=== PATIENT | female | born 1940 | race Caucasian/White ===

== ENCOUNTER → 2017-07-16 | Day surgery (SDC) | payer OTHER ==
[~2017-07-16] VITALS: Ht 154.9 cm; Wt 61.2 kg
[~2017-07-16] MED LIST: IBU-8800 MG PO; LISINOPRIL10 MG PO; METFORMIN500 MG PO; PERCOCET 325 MG1 TA2 PO; SIMVASTATIN40 MG PO
--- NOTE | ~2017-07-16 | O ---
[place], [place] OPERATIVE NOTE NAME: [facility]I [facility]ILLO [facility]: [id number] UNIT #: [id number] ROOM: DOCTOR: MALOU RODRIGUEZ,EREN BIRTHDATE: [birth year] DOS: 07/16/2017 GASTROENDOSCOPIC REPORT INDICATIONS: The patient has presented with chief complaint of history of colonic polyp, undergoing investigation. PROCEDURE: Today's procedure part of investigation is colonoscopy plus polypectomy. PREMEDICATION: Versed and Diprivan. SCOPE: Olympus folding colonoscope 10L video. REPORT: After putting the patient in left lateral position and application of lubricant to the scope, the scope was introduced. Thereafter, under direct visualization, advanced through the length of colon without difficulty. Diverticulosis was appreciated. Sessile polypoid lesion in rectal pouch with piecemeal polypectomy removed. Base of the cecum explored, appendiceal orifice identified, ileocecal valve was defined. Scope was gradually withdrawn from ascending, transverse, descending colon. The patient extubated, tolerated the procedure well. IMPRESSION: Diverticulosis, sessile colonic polyp, rectosigmoid area, status post piecemeal polypectomy. PLAN: High fiber fruit diet. ACTIVITY: Ad bigg. FOLLOWUP: Routinely with you in office, p.r.n. visit with us in GI Clinic. EREN WESTFALL MD CM:OPRECORD:OPERATIVE NOTE 1048 [id number] EREN WESTFALL MD 07/16/17 1105 interface
--- NOTE | ~2017-07-16 | O ---
[place], [place] OPERATIVE NOTE NAME: [facility]O [id number] UNIT #: [id number] ROOM: DOCTOR: EREN WESTFALL MD BIRTHDATE: [birth year] DOS: 07/16/2017 GASTROENDOSCOPIC REPORT INDICATIONS: A 77-year-old patient who presented with chief complaint of dyspepsia, history of colonic polyp, undergone investigation. ALLERGIES: No known to medication. PAST MEDICAL HISTORY: Diabetes, hypertension, hyperlipidemia. PAST SURGICAL HISTORY: Tubal and cholecystectomy. SOCIAL HISTORY: Nonsmoker, nonalcohol consumer. PROCEDURE: Today's procedure is part of investigation is panendoscopy and colonoscopy. PREMEDICATION: Versed and Diprivan. SCOPE: Olympus folding gastroscope Q10. REPORT: After putting the patient in left lateral position and application of lubricant to the scope, the scope was introduced. Thereafter, under direct visualization, advanced through the length of esophagus without difficulty. Esophagus cervicothoracic distally carefully examined. Gastric pouch was entered. Gastritis was seen. Antral biopsy was obtained. Duodenal bulb, second and third part within normal limits. PLAN AND DISCUSSION: We are going to start this patient on PPI therapy, i.e., omeprazole 20 mg 1 daily and I am going to proceed with colonoscopy. EREN WESTFALL MD CM:OPRECORD:OPERATIVE NOTE [phone] EREN WESTFALL MD 07/16/17 1059 interface
[2017-07-16 09:43] VITALS: BP 208/88
[2017-07-16 10:36] VITALS: BP 159/66
[2017-07-16 10:51] VITALS: BP 175/77
[2017-07-16 11:05] VITALS: BP 168/70
== END | disposition home or self-care (01) ==
LOC: SDC 07-10 11:00
DX: Z09 Encounter for follow-up examination after completed treatment for conditions other than malignant neoplasm (principal); Z86.010 Personal history of colon polyps; K57.30 Diverticulosis of large intestine without perforation or abscess without bleeding; K29.50 Unspecified chronic gastritis without bleeding; K62.1 Rectal polyp; E11.9 Type 2 diabetes mellitus without complications; I10 Essential (primary) hypertension; E78.5 Hyperlipidemia, unspecified; Z98.51 Tubal ligation status; Z90.49 Acquired absence of other specified parts of digestive tract; Z98.890 Other specified postprocedural states; Z82.49 Family history of ischemic heart disease and other diseases of the circulatory system; Z80.9 Family history of malignant neoplasm, unspecified

== ENCOUNTER 2018-12-08 15:33 | Inpatient (IN) | payer OTHER ==
[~2018-12-08] VITALS: Ht 154.9 cm; Wt 59.0 kg
--- NOTE | ~2018-12-08 | O ---
[place], [place] OPERATIVE NOTE NAME: [id number] UN[facility] #: [id number] ROOM: 408 DOCTOR: EREN WESTFALL MD BIRTHDATE: [birth year] DOS: 12/11/2018 GASTROENDOSCOPIC REPORT INDICATIONS: A 78-year-old patient who has presented with chief complaint of abnormal liver function test, abnormal CT scan, dilated common duct, suspected distal common duct obstruction. PROCEDURE: Today's procedure part of investigation is ERCP plus therapeutics. SCOPE: Olympus side-viewing duodenoscope. REPORT: After putting the patient in left lateral position and application of lubricant to the scope, the scope was introduced. Thereafter, under direct visualization, advanced through the length of esophagus into gastric pouch into duodenal bulb. Selective cannulization of common duct was done. Common duct stones was noticed. A guidewire was introduced into the right hepatic radicle and papillotomy was performed at 1 o'clock after opacification of duct and documentations and balloon size 12 was introduced into the common duct. Multiple sweeps done, multiple stones were extracted. Then, a stent size 10 x 5 was advanced over the guidewire and placed in the common duct and photographic and radiologic x-ray documentation was done. The patient extubated, tolerated the procedure well. IMPRESSION: ERCP, papillotomy, status post balloon dilation of papilla, status post balloon sweep of common duct and multiple stones removal, status post common duct stent size 10 x 5 and supportive. PLAN AND DISCUSSION: Multi-choledocholithiasis extraction as identified above. Plan, we are going to get a liver function test tomorrow. EREN WESTFALL MD CM:OPRECORD:OPERATIVE NOTE 18 225 EREN WESTFALL MD 12/11/18 2250 interface
--- NOTE | ~2018-12-08 | CON ---
[place], [place] REPORT OF CONSULTATION NAME: [facility]I CASTILLO [facility] [id number] UNIT #: [id number] ROOM: 408 DOCTOR: MALOU RODRIGUEZDEIONJOE BIRTHDATE: [birth year] DOS: 12/11/2018 GASTROENDOSCOPIC REPORT HISTORY OF PRESENT ILLNESS: This is a 78-year-old patient, who has presented with chief complaint of abdominal pain after intensive investigation, finally was suspected to have dilated intra and extrahepatic duct and suspected with possible choledocholithiasis at distal common duct and I have been asked for assessment of the patient with a biliary dilation of 17 mm. She is very large status post cholecystectomy history. Her labs and records have been reviewed. Her SGOT and SGPT are elevated at 69 and 125. Alkaline phosphatase is 321 with bilirubin of 0.3. There is MRCP done, severe biliary dilation, no pancreatitis, and distal common bile duct stone. Blood cultures are negative. Myocardial perfusion studies, ejection fraction of more than 70%. LFTs repeatedly abnormal. Blood cultures are negative. Viral hepatitis studies negative. Initial admission blood work, white blood cell was 13.5 with H and H of 14 and 46. INR was 1.0. Comprehensive metabolic panel at that stage remained abnormal repeatedly. Bilirubin was as high as 3.6. PAST MEDICAL HISTORY: Associated with hyperlipidemia, hiatal hernia, hypertension, and diabetes mellitus. PAST SURGICAL HISTORY: Cholecystectomy, polypectomy, and bladder surgery. HOME MEDICATIONS: Home medications has been reviewed. ALLERGIES: No known medications. SOCIAL HISTORY: She is a nonsmoker, nonalcohol consumer. FAMILY HISTORY: Noncontributory. REVIEW OF SYSTEMS: HEENT: In general, denies double vision, blurred vision. RESPIRATORY: Denies acute shortness of breath. CARDIOVASCULAR: Denies acute chest pain. DIGESTIVE SYSTEM: Abdominal pain, right upper quadrant pain, nausea. PHYSICAL EXAMINATION: VITAL SIGNS: Stable. HEENT: Within normal limits. NECK: Supple, no thyromegaly, no cervical lymphadenopathy. CHEST: Symmetric anatomy, equal expansion. No wheeze, no rhonchi. HEART: Normal sinus rhythm, no gallop, no murmur. ABDOMEN: Soft. No hepato-organomegaly. Bowel sounds present. No pulsatile mass. She has right upper quadrant pain. EXTREMITIES: No cyanosis. No pedal edema. NEUROLOGIC: She is alert and oriented to time and place. IMPRESSION: Dilated common bile duct, abnormal liver function test, and distal [place], [place] REPORT OF CONSULTATION NAME: MEENAKSHI CASTILLO UNIT #: [id number] ROOM: [facility] DOCTOR: EREN WESTFALL MD BIRTHDATE: [birth year] common bile duct stone. OTHER ADJUNCTIVE DIAGNOSES: As outlined above. PLAN AND DISCUSSION: ERCP and therapeutics. EREN WESTFALL MD CM:CONSTR:REPORT OF CONSULTATION 1929 12/12/18 0615 interface
--- NOTE | ~2018-12-08 | EKG ---
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
--- NOTE | ~2018-12-08 | ST ---
[place], [place] EXERCISE STRESS TEST REPORT NAME[id number] UNIT #: [id number] ROOM: 408 DOCTOR: JORI LITTLE BIRTHDATE: [birth year] DOS: 12/10/2018 INDICATION: Chest pain. PROTOCOL: Exercise SPECT myocardial perfusion imaging, Jayesh protocol. Baseline EKG showed normal sinus rhythm with normal axis and normal intervals, no resting ST or T-wave abnormalities. Baseline blood pressure 122/64 with a resting pulse of 73. The patient exercised for a total of 7 minutes and 38 seconds achieving a peak heart rate of 121, which is 84% of age-predicted maximum. Peak blood pressure not obtained. His blood pressures were not able to be recorded during exercise. The patient felt too unsteady to move her arm. Radiotracer was injected at peak exercises and the emergency stop button was inadvertently pressed by stress lab staff causing early termination of the protocol immediately after tracer injection. Stress EKG showed no evidence of ischemia and no arrhythmias were noted. The patient reported no chest pain. The patient was manually held in stage 2 of the Jayesh protocol and she felt she would be unable to augment the speed and the incline. IMPRESSION: 1. No evidence of ischemia on stress EKG. 2. Total workload achieved 7.1 METs, average for age. 3. Nuclear images to be reported separately. Dr. JORI LITTLE MD CM:STRESS:EXERCISE STRESS TEST REPORT [id number] JORI LITTLE
--- NOTE | ~2018-12-08 | EKG ---
[place], [place] ELECTROCARDIOGRAM REPORT NAME: MEENAKSHI CASTILLO UNIT #: [id number] ROOM: 408 DOCTOR: RED DRAFT REPORT BIRTHDATE: [birth year] [facility] Test Date: 2018-12-09 Test Time: 00:16:26 Pat Name: MEENAKSHI CASTILLO Department: Room: 408 2 Gender: F Electronics Maintenance Technician: SS RESP : 1940 Requested By: MIGUEL MELGAR Order Number: [id number] Reading MD: Philip Martinez MD Measurements Intervals [place] Rate: 76 P: 27 RI: 151 QRS: 8 QRSD: 86 T: 27 QT: 380 QTc: 428 Interpretive Statements Sinus rhythm Abnormal R-wave progression, early transition Electronically Signed On 12-09-2018 8:25:28 PDT by Philip Martinez MD CM:EKGRPT:ELECTROCARDIOGRAM REPORT 0016 0825 MIGUEL BRUNER DRAFT REPORT MIGUEL MELGAR DO
--- NOTE | ~2018-12-08 | EKG ---
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
[2018-12-08 15:33] VITALS: BP 135/49
[~2018-12-08 15:33] MED LIST changes: -LISINOPRIL10 MG PO; +LISINOPRIL20 MG PO
[2018-12-08 16:04] LABS: BASO # 0.1 10*3/uL (0.0-0.1); BASO % 0.4 % (0.0-1.0); EOS # 0.2 10*3/uL (0.0-0.4); EOS % 1.8 % (1.0-4.0); HEMATOCRIT 46.7 % (37.0-47.0); HEMOGLOBIN 14.9 g/dl (12.0-16.0); LYMPH # 0.9 10*3/uL (1.3-4.4); MEAN CORPUSCULAR HGB 29.7 pg (27.0-31.0); MEAN CORPUSCULAR HGB CONC 31.9 g/dl (33.0-37.0); MEAN PLATELET VOLUME 10.7 fl (9.6-12.3); MONO # 0.1 10*3/uL (0.1-1.0); MONO % 0.8 % (3.0-9.0); NEUT # 12.1 10*3/uL (2.3-7.9); NEUT % 89.6 % (47.0-73.0); PLATELET COUNT AUTOMATED 209 10*3/uL (130-400); RED BLOOD COUNT 5.02 10*6/uL (4.10-5.10); RED CELL DISTRI WIDTH 12.5 % (0-14.5); WHITE BLOOD COUNT 13.5 10*3/uL (4.8-10.8)
[2018-12-08 16:15] LABS: ACT PARTIAL THROMBO TIME 22.9 SECONDS (20.0-32.1)
[2018-12-08 16:20] LABS: ALBUMIN 3.4 gm/dl (3.1-4.5); ALKALINE PHOSPHATASE 387 U/L (45-117); BUN 8 mg/dl (7-24); CHLORIDE 103 mmol/L (98-107); CREATININE 0.96 mg/dL (0.55-1.02); LIPASE 122 U/L (73-393); POTASSIUM 3.6 mmol/L (3.5-5.1); SGOT/AST 381 IU/L (3-35); SGPT/ALT 231 U/L (12-78); SODIUM 140 mmol/L (136-145)
[2018-12-08 16:24] LABS: TROPONIN I < 0.015 ng/ml (<0.045)
[2018-12-08 18:03] LABS: BILIRUBIN NEGATIVE (NEGATIVE); BLOOD TRACE-INTACT (NEGATIVE); CLARITY CLEAR (CLEAR); COLOR YELLOW (YELLOW); GLUCOSE TRACE (NEGATIVE); KETONE NEGATIVE (NEGATIVE); LEUKO ESTERASE NEGATIVE (NEGATIVE); NITRITE NEGATIVE (NEGATIVE); SPECIFIC GRAVITY <= 1.005 (1.005-1.030)
[2018-12-08 18:18] LABS: EPITHELIAL CELLS 0-2; RBC 0-2 rbc/hpf (0-2)
[2018-12-08 18:25] VITALS: BP 130/58
[2018-12-08 21:35] VITALS: BP 135/60
--- NOTE | 2018-12-08 21:35 | NUR ---
A 78, admitted to , under the services of MICHAEL Novak DO with a diagnosis of ATYPICAL CHEST PAIN,, ELEVATED LIVER ENZYMES. Chief complaint is CHEST,BACK, AND ABDOMINAL PAIN. Patient arrived via stretcher from ER. Monitor applied. Initial assessment completed. Vital signs taken and recorded. MICHAEL NOVAK DO notified of admission to the unit. Orders received. See assessment for past medical history, medications and allergies. Patient and/or family oriented to unit. [facility] 4TH FLOOR visitation policy reviewed. Clothing/patient valuable form completed. SHAYNE JORDAN
[2018-12-08] MEDS ORDERED: JANUVIA100 MG PO (21:45)
[2018-12-08] MEDS ORDERED: LEVEMIR FL100 UNIT/1 SC (21:45)
--- NOTE | 2018-12-08 22:20 | NUR ---
DR. MELGAR NOTIFIED PATIENT MED REC IS UP TO DATE
--- NOTE | 2018-12-08 23:37 | NUR ---
Pt started on IS. Encouraged pt to self-use 10 breaths an hour. 1000cc
[2018-12-09] VITALS: BP 154/69
--- NOTE | 2018-12-09 | NUR ---
PATIENT TAKEN DOWN FOR CT.
[2018-12-09 03:24] LABS: BASO # 0.1 10*3/uL (0.0-0.1); BASO % 0.4 % (0.0-1.0); EOS # 0.2 10*3/uL (0.0-0.4); EOS % 1.4 % (1.0-4.0); HEMATOCRIT 41.8 % (37.0-47.0); HEMOGLOBIN 13.3 g/dl (12.0-16.0); LYMPH # 2.1 10*3/uL (1.3-4.4); LYMPH % 14.4 % (27.0-41.0); MEAN CELL VOLUME 92.3 fl (81.0-99.0); MEAN CORPUSCULAR HGB 29.4 pg (27.0-31.0); MEAN CORPUSCULAR HGB CONC 31.8 g/dl (33.0-37.0); MEAN PLATELET VOLUME 10.9 fl (9.6-12.3); MONO # 0.6 10*3/uL (0.1-1.0); MONO % 3.8 % (3.0-9.0); NEUT # 11.8 10*3/uL (2.3-7.9); NEUT % 79.7 % (47.0-73.0); PLATELET COUNT AUTOMATED 183 10*3/uL (130-400); RED BLOOD COUNT 4.53 10*6/uL (4.10-5.10); RED CELL DISTRI WIDTH 12.6 % (0-14.5); WHITE BLOOD COUNT 14.8 10*3/uL (4.8-10.8)
[2018-12-09 03:54] LABS: ALBUMIN 2.8 gm/dl (3.1-4.5); ALKALINE PHOSPHATASE 315 U/L (45-117); BILIRUBIN, DIRECT 0.7 mg/dL (0.0-0.2); BUN 6 mg/dl (7-24); CHLORIDE 108 mmol/L (98-107); CHOLESTEROL 101 mg/dL (<200); GAMMA GLUTAMYL TRANSPEPTIDASE 430 U/L (5-55); HDL CHOLESTEROL 40 mg/dl (40-60); LDL CHOLESTEROL 41 mg/dL (9-159); PHOSPHOROUS 2.7 mg/dL (2.5-4.9); POTASSIUM 3.6 mmol/L (3.5-5.1); SGOT/AST 213 IU/L (3-35); SGPT/ALT 202 U/L (12-78); SODIUM 142 mmol/L (136-145); TOTAL PROTEIN 6.6 gm/dL (6.4-8.2); TRIGLYCERIDES 100 mg/dl (<150); VLDL CHOLESTEROL 20 mg/dL (6-40)
--- NOTE | 2018-12-09 07:10 | NUR ---
ARRIVED ON SHIFT, INTRODUCED TO PATIENT, BEDSIDE REPORT RECEIVED, NO NEEDS VOICED AT THIS TIME. WHITE BOARD UPDATED.
[2018-12-09 08:00] VITALS: BP 168/80
--- NOTE | 2018-12-09 08:23 | NUR ---
Shift chart check completed.
--- NOTE | 2018-12-09 09:00 | NUR ---
Patient Scheduling Coordinator in to talk to patient. Patient states lives at home with . There are few steps in the home. Physician: arnulfo hussein Pharmacy: Home health services: none Patient's level of ADLs: INDEPENDENT Patient has working utilities: all working DME: none Follow-up physician's appointment after d/c: will be made by hospsitalist nurse director upon discharge Does patient want to access PORTAL?: no Discharge plan discussed with patient, she lives at home with , she is independent in adls and ambulation, she states she will be returning home when able. discussed with patient VNA, she declined any home needs at this time. MACY PEGUERO
[2018-12-09 09:09] LABS: VITAMIN D, 25-HYDROXY 13.4 ng/mL (30-100)
--- NOTE | 2018-12-09 09:40 | NUR ---
CALL PLACED TO HOSPITALIST, SPOKE TO DR. CASTILLO, ADVISED THAT HOME MEDS WHERE RECONCILED YESTERDAY.
[2018-12-09 12:00] VITALS: BP 139/52
--- NOTE | 2018-12-09 12:35 | NUR ---
PATIENT C/O CHEST AND LEFT SHOULDER PAIN DESCRIBES A HURTING PAIN 5/10, WILL REASSESS IN1 HOUR.
--- NOTE | 2018-12-09 13:30 | NUR ---
PATIENT REPORTS HER PAIN IS ONLY MILDLY BETTER, SHE DECLINES [id number] ELSE FOR PAIN.
--- NOTE | 2018-12-09 15:40 | NUR ---
RESTING IN BED. COMPLAINS OF PAIN IN BACK BETWEEN SHOULDER BLADES.
[2018-12-09 16:00] VITALS: BP 150/46
--- NOTE | 2018-12-09 18:20 | NUR ---
COMPLAINS OF PAIN IN SHOULDER BLADES. VOICES EARLIER MORPHINE WAS NOT EFFECTIVE FOR PAIN. DR. KAMARA NOTIFIED
--- NOTE | 2018-12-09 18:43 | NUR ---
MEDICATED WITH NORCO FOR COMPLAINST OF PAIN IN MIDSTERNAL CHEST RADIATING TO BACK.
[2018-12-09 20:00] VITALS: BP 155/60
--- NOTE | 2018-12-09 21:30 | NUR ---
MEDICATED WITH RETORIL PER PRN ORDER FOR C/O INSOMNIA.
--- NOTE | 2018-12-09 21:58 | NUR ---
DR KING NOTIFIED OF + BLOOD CULTURES.
[2018-12-10] VITALS: BP 137/59
[2018-12-10 07:11] LABS: HEPATITIS B SURFACE AG Negative (Negative); HEPATITIS C VIRUS ANTIBODY <0.1 s/co (0.0-0.9)
[2018-12-10 07:53] LABS: BASO # 0.1 10*3/uL (0.0-0.1); BASO % 0.5 % (0.0-1.0); EOS # 0.4 10*3/uL (0.0-0.4); HEMATOCRIT 38.7 % (37.0-47.0); HEMOGLOBIN 12.6 g/dl (12.0-16.0); LYMPH # 2.3 10*3/uL (1.3-4.4); LYMPH % 20.5 % (27.0-41.0); MEAN CELL VOLUME 90.2 fl (81.0-99.0); MEAN CORPUSCULAR HGB 29.4 pg (27.0-31.0); MEAN CORPUSCULAR HGB CONC 32.6 g/dl (33.0-37.0); MEAN PLATELET VOLUME 10.8 fl (9.6-12.3); MONO # 0.6 10*3/uL (0.1-1.0); MONO % 5.3 % (3.0-9.0); NEUT # 7.7 10*3/uL (2.3-7.9); NEUT % 69.4 % (47.0-73.0); PLATELET COUNT AUTOMATED 194 10*3/uL (130-400); RED BLOOD COUNT 4.29 10*6/uL (4.10-5.10); RED CELL DISTRI WIDTH 12.5 % (0-14.5)
[2018-12-10 08:08] LABS: ALBUMIN 2.8 gm/dl (3.1-4.5); ALKALINE PHOSPHATASE 326 U/L (45-117); BUN 5 mg/dl (7-24); CHLORIDE 105 mmol/L (98-107); CREATININE 0.75 mg/dL (0.55-1.02); POTASSIUM 3.2 mmol/L (3.5-5.1); SGOT/AST 96 IU/L (3-35); SGPT/ALT 141 U/L (12-78); SODIUM 140 mmol/L (136-145); TOTAL PROTEIN 6.6 gm/dL (6.4-8.2)
--- NOTE | 2018-12-10 08:21 | NUR ---
Taken off floor to cardiac rehab for stress testing.
--- NOTE | 2018-12-10 09:00 | NUR ---
case management visits with patient, she states she will return home when medically stable and denies any home needs
--- NOTE | 2018-12-10 10:40 | NUR ---
INFORMED CONSENT SIGNED FOR CARDIOLYTE STRESS TEST WITH DR. LITTLE. RESTING EKG NSR, HR 73, BP 122/64. COMPLETED 7:38 OF A MODIFIED TIN PROTOCOL STRESS TESTNG WITH STAGE II, 2.5PMH/12% GRADE BEING HELD. PEAK HEART RATE OF 121 ACHIEVED WHICH IS 84% PREDICTED MAXIMUM AND A PEAK BP OF 120/64. NO ARRHYTHMIAS NOTED. NON DIAGNOSTIC ST CHANGES PRESENT. TEST TERMINATED D/T FATIGUE. HAS A GOOD EXERCISE TOLERANCE. LAST RECOVERY HR 89, BP 120/64. WAITING NUCLEAR SCANNING IN STABLE CONDITION.
--- NOTE | 2018-12-10 10:49 | NUR ---
NOTIFIED OF CONSULT. ATILIO CALLED BACK WITH MRCP RESULTS.
[2018-12-10 12:00] VITALS: BP 105/62
--- NOTE | 2018-12-10 12:54 | NUR ---
NOTIFIED OF MRCP RESULTS. SCHEDULED FOR ERCP TOMORROW.
[2018-12-10 16:00] VITALS: BP 127/63
[2018-12-10 20:00] VITALS: BP 133/54
[2018-12-11] VITALS (9 sets, daily range): BP systolic 138–169; BP diastolic 55–81
[2018-12-11 07:20] LABS: ALBUMIN 2.9 gm/dl (3.1-4.5); ALKALINE PHOSPHATASE 321 U/L (45-117); BUN 5 mg/dl (7-24); CHLORIDE 109 mmol/L (98-107); CREATININE 0.79 mg/dL (0.55-1.02); POTASSIUM 3.5 mmol/L (3.5-5.1); SGOT/AST 69 IU/L (3-35); SGPT/ALT 125 U/L (12-78); SODIUM 142 mmol/L (136-145); TOTAL PROTEIN 6.9 gm/dL (6.4-8.2)
--- NOTE | 2018-12-11 08:24 | NUR ---
DR KAMARA CALLED AND INFORMED OF FINAL BLOOD CULTURE RESULT.
--- NOTE | 2018-12-11 09:00 | NUR ---
case management visits with patient, she is having a procedure today and states she will return home with no home needs when medically stable, case management will follow
--- NOTE | 2018-12-11 18:40 | NUR ---
DOWN FOR ERCP.
--- NOTE | 2018-12-11 20:26 | NUR ---
PER STONES WERE REMOVED AND STENT EWAS PLACED DURING ERCP. ORDERS TO CONTINUE ABX ORDERED BY PRIMARY TEAM, CLEAR LIQUID DIET, LEFT/BMP IN AM. CALL WITH RESULTS BY 10AM.
--- NOTE | 2018-12-11 20:50 | NUR ---
NURSE TO NURSE REPORT REC'D FROM SURGERY
--- NOTE | 2018-12-11 21:18 | NUR ---
BACK TO ROOM FROM OR. VSS.
--- NOTE | 2018-12-11 23:14 | NUR ---
SPOKE WITH DR. TOBIAS AT THIS TIME. PATIENT COMPLAIING OF SORE THROAT, HAD ERCP WITH DR. WESTFALL TODAY. ORDER RECIEVED FOR CEPACOL Q1H
[2018-12-12] VITALS: BP 152/60
--- NOTE | 2018-12-12 00:20 | NUR ---
24 HR chart check completed.
[2018-12-12 07:11] LABS: ALBUMIN 2.8 gm/dl (3.1-4.5); BILIRUBIN, DIRECT 0.2 mg/dL (0.0-0.2); BUN 7 mg/dl (7-24); CHLORIDE 108 mmol/L (98-107); CREATININE 0.65 mg/dL (0.55-1.02); POTASSIUM 3.5 mmol/L (3.5-5.1); SGOT/AST 32 IU/L (3-35); SGPT/ALT 87 U/L (12-78); SODIUM 141 mmol/L (136-145)
[2018-12-12 07:12] LABS: ALKALINE PHOSPHATASE 272 U/L (45-117); TOTAL PROTEIN 6.6 gm/dL (6.4-8.2)
[2018-12-12 07:17] LABS: BASO # 0.1 10*3/uL (0.0-0.1); BASO % 0.7 % (0.0-1.0); EOS # 0.6 10*3/uL (0.0-0.4); EOS % 6.3 % (1.0-4.0); HEMATOCRIT 41.3 % (37.0-47.0); HEMOGLOBIN 13.1 g/dl (12.0-16.0); LYMPH # 2.9 10*3/uL (1.3-4.4); LYMPH % 29.5 % (27.0-41.0); MEAN CELL VOLUME 91.6 fl (81.0-99.0); MEAN CORPUSCULAR HGB CONC 31.7 g/dl (33.0-37.0); MEAN PLATELET VOLUME 11.2 fl (9.6-12.3); MONO # 0.5 10*3/uL (0.1-1.0); MONO % 5.5 % (3.0-9.0); NEUT # 5.6 10*3/uL (2.3-7.9); NEUT % 57.7 % (47.0-73.0); RED BLOOD COUNT 4.51 10*6/uL (4.10-5.10); RED CELL DISTRI WIDTH 12.5 % (0-14.5); WHITE BLOOD COUNT 9.7 10*3/uL (4.8-10.8)
[2018-12-12 07:31] LABS: PLATELET COUNT AUTOMATED 260 10*3/uL (130-400)
[2018-12-12 08:00] VITALS: BP 174/62
--- NOTE | 2018-12-12 08:22 | NUR ---
CALLED REGARDING AM LABS. OKAY TO ADVANCE TO SOFT DIET.
--- NOTE | 2018-12-12 09:32 | NUR ---
NOTIFIED REGARDING ELEVATED BP THIS AM. ROUTINE LISINOPRIL GIVEN. PT C/O ANXIETY REGARDING DISCHARGE. WILL RECHECK BP IN 1 HOUR.
--- NOTE | 2018-12-12 09:38 | NUR ---
PT REFUSED SCHEDULED LOVENOX DESPITE NURSING EDUCATION.
--- NOTE | 2018-12-12 09:42 | NUR ---
IN TO SEE PATIENT.
[2018-12-12 11:10] VITALS: BP 168/54
[2018-12-12 12:00] VITALS: BP 160/64
--- NOTE | 2018-12-12 13:15 | NUR ---
SPOKE WITH REGARDING DISCHARGE. OKAY FOR PATIENT TO GO HOME AND INSTRUCTED TO FOLLOW UP WITH OUTPT. NOTIFIED.
[2018-12-12] MEDS ORDERED: CEPHALEXIN500 M1 PO (13:19)
--- NOTE | 2018-12-12 14:01 | NUR ---
Discharge instructions reviewed with patient/family. Patient receptive and verbalizes understanding. Follow-up care arranged. Written instructions given to patient/family. SOLITARIO BARAJAS.
== END 2018-12-12 13:58 | disposition home or self-care (01) | DRG 872 ==
LOC: ED 15:33 → 4E 19:57 → EDHOLD 19:57 → 4E 20:40
PROVIDERS: Internal Medicine; Nurse Practitioner Family; ADMIT Internal Medicine
PROC: 3E073KZ Introduction of Other Diagnostic Substance into Coronary Artery, Percutaneous Approach (ICD-10-PCS; principal; 2018-12-10)
PROC: 4A02XM4 Measurement of Cardiac Total Activity, External Approach (ICD-10-PCS; principal; 2018-12-10)
PROC: 0FC98ZZ Extirpation of Matter from Common Bile Duct, Via Natural or Artificial Opening Endoscopic (ICD-10-PCS; 2018-12-11)
PROC: 0F798DZ Dilation of Common Bile Duct with Intraluminal Device, Via Natural or Artificial Opening Endoscopic (ICD-10-PCS; 2018-12-11)
DX: A41.9 Sepsis, unspecified organism (principal); E44.0 Moderate protein-calorie malnutrition; J98.11 Atelectasis; K80.51 Calculus of bile duct without cholangitis or cholecystitis with obstruction; K83.09 Other cholangitis; I35.2 Nonrheumatic aortic (valve) stenosis with insufficiency; I77.810 Thoracic aortic ectasia; I10 Essential (primary) hypertension; E78.5 Hyperlipidemia, unspecified; R65.20 Severe sepsis without septic shock; R07.89 Other chest pain; E87.8 Other disorders of electrolyte and fluid balance, not elsewhere classified; R74.0 Nonspecific elevation of levels of transaminase and lactic acid dehydrogenase [LDH]; E11.65 Type 2 diabetes mellitus with hyperglycemia; Z79.4 Long term (current) use of insulin; Z90.49 Acquired absence of other specified parts of digestive tract; Z85.828 Personal history of other malignant neoplasm of skin; Z82.49 Family history of ischemic heart disease and other diseases of the circulatory system; Z80.0 Family history of malignant neoplasm of digestive organs; Z81.8 Family history of other mental and behavioral disorders; Z79.899 Other long term (current) drug therapy; Z68.24 Body mass index [BMI] 24.0-24.9, adult

== ENCOUNTER → 2019-02-08 | Outpatient (CLI) | payer OTHER ==
[~2019-02-08] MED LIST changes: +CEPHALEXIN500 M1 PO; +JANUVIA100 MG PO; +JARDIANCE25 MG PO; +LEVEMIR FL100 UNIT/1 SC
== END | disposition home or self-care (01) ==
LOC: US 14:10
DX: M25.572 Pain in left ankle and joints of left foot (principal); M79.651 Pain in right thigh; R22.41 Localized swelling, mass and lump, right lower limb

== ENCOUNTER → 2019-02-24 | Outpatient (CLI) | payer OTHER | END | disposition home or self-care (01) | LOC: US 07:23 | DX: K80.20 Calculus of gallbladder without cholecystitis without obstruction (principal); E11.9 Type 2 diabetes mellitus without complications; I10 Essential (primary) hypertension; Z90.710 Acquired absence of both cervix and uterus; Z98.890 Other specified postprocedural states ==

== ENCOUNTER → 2019-02-26 | Day surgery (SDC) | payer OTHER ==
[~2019-02-26] VITALS: Ht 154.9 cm; Wt 61.2 kg
--- NOTE | ~2019-02-26 | O ---
[place], [place] OPERATIVE NOTE NAME: MEENAKSHI CASTILLO UNIT #: [id number] ROOM: DOCTOR: EREN WESTFALL MD BIRTHDATE: [birth year] DOS: 02/26/2019 GASTROENDOSCOPIC REPORT INDICATIONS: This is a 78-year-old patient who has presented with previous therapeutic ERCP and stent, right upper quadrant pain. ALLERGIES: No known medication. FAMILY HISTORY: Noncontributory. PAST SURGICAL HISTORY: Cholecystectomy. PAST MEDICAL HISTORY: Diabetes, hypertension and hypercholesterolemia. SOCIAL HISTORY: Nonsmoker, nonalcohol consumer. PROCEDURE: Today's procedure part of investigation is ERCP plus snare and extraction of the retained common bile duct stent plus balloon dilation of papilla plus balloon sweep of common bile duct from sludge and stones. PREMEDICATION: Propofol. SCOPE: Olympus side-viewing of the duodenoscope. REPORT: After putting the patient in left lateral position and application of lubricant to the scope, the scope was introduced. Thereafter, under direct visualization, advanced through the length of esophagus into gastric pouch into duodenum. The existing obstructed common duct stent was snared and orally extracted. Then, after immediately the patient was reintubated back to the same location to the papilla and selective cannulization of common duct was undertaken. Hepatic radicles were opacified and guidewire was negotiated to right hepatic radicles and this and a balloon size 12 was introduced over the guidewire into the distal common duct. Papilla was dilated. After this, a balloon was negotiated to the proximal hepatic flexure. Multiple sweeps were done, sludge and stone was extracted. The patient extubated, tolerated the procedure well. IMPRESSION: ERCP plus snare removal of retained obstructed common bile duct stent, status post balloon dilation of papilla, status post balloon sweep of common duct removal of sludge and stones. PLAN AND DISCUSSION: Clinical observation. [place], [place] OPERATIVE NOTE NAME: MEENAKSHI CASTILLO UNIT #: [id number] ROOM: DOCTOR: EREN WESTFALL MD BIRTHDATE: [birth year] EREN WESTFALL MD CM:OPRECORD:OPERATIVE NOTE 1408 1426 EREN WESTFALL MD 02/26/19 1427 interface
[2019-02-26 12:00] VITALS: BP 167/94
[2019-02-26 14:10] VITALS: BP 167/75
[2019-02-26 14:25] VITALS: BP 151/72
[2019-02-26 14:40] VITALS: BP 147/71
[2019-02-26 14:55] VITALS: BP 152/69
[2019-02-26 15:10] VITALS: BP 157/68
== END | disposition home or self-care (01) ==
LOC: SDC 02-23 14:00
DX: R10.11 Right upper quadrant pain (principal); I10 Essential (primary) hypertension; E11.9 Type 2 diabetes mellitus without complications; E78.00 Pure hypercholesterolemia, unspecified; K44.9 Diaphragmatic hernia without obstruction or gangrene; F41.9 Anxiety disorder, unspecified; E78.5 Hyperlipidemia, unspecified; Z79.4 Long term (current) use of insulin; Z98.890 Other specified postprocedural states; Z79.899 Other long term (current) drug therapy; Z82.49 Family history of ischemic heart disease and other diseases of the circulatory system; Z80.8 Family history of malignant neoplasm of other organs or systems

== ENCOUNTER → 2019-06-18 | Day surgery (SDC) | payer OTHER ==
[~2019-06-18] VITALS: Ht 154.9 cm; Wt 63.5 kg
[~2019-06-18] MED LIST changes: +BUPROPION HCL150 M1 PO; +HYDROXYZINE PAM50 MG PO; -LISINOPRIL20 MG PO; +LISINOPRIL30 MG PO
[2019-06-18 12:48] VITALS: BP 204/95
[2019-06-18 13:04] VITALS: BP 175/84
[2019-06-18 14:15] VITALS: BP 126/69
[2019-06-18 14:30] VITALS: BP 168/75
[2019-06-18 14:45] VITALS: BP 169/86
== END | disposition home or self-care (01) ==
LOC: SDC 06-15 11:00
DX: K29.70 Gastritis, unspecified, without bleeding (principal); I10 Essential (primary) hypertension; E11.9 Type 2 diabetes mellitus without complications; E78.00 Pure hypercholesterolemia, unspecified; K44.9 Diaphragmatic hernia without obstruction or gangrene; F41.9 Anxiety disorder, unspecified; F32.9 Major depressive disorder, single episode, unspecified; E78.5 Hyperlipidemia, unspecified; Z98.890 Other specified postprocedural states; Z90.49 Acquired absence of other specified parts of digestive tract

== ENCOUNTER 2024-01-22 21:47 | Emergency (ER) | payer BC, OTHER ==
[~2024-01-22] VITALS: Ht 154.9 cm; Wt 64.4 kg
[~2024-01-22 21:47] MED LIST changes: +AMLODIPINE-BEN1 EACH PO; +HYDROCHLOROTHIA25 M1 PO; +METFORMIN XR500 MG PO; +PANTOPRAZOLE SO40 MG PO; +SOLIFENACIN SUCC5 MG PO
[2024-01-22 22:18] LABS: BASO # 0.1 10*3/uL (0.0-0.1); BASO % 0.3 % (0.0-1.0); EOS # 0.2 10*3/uL (0.0-0.4); EOS % 1.2 % (1.0-4.0); LYMPH # 1.3 10*3/uL (1.3-4.4); LYMPH % 7.1 % (27.0-41.0); MEAN CELL VOLUME 90.9 fl (81.0-99.0); MEAN CORPUSCULAR HGB 28.5 pg (27.0-31.0); MEAN CORPUSCULAR HGB CONC 31.3 g/dl (33.0-37.0); MEAN PLATELET VOLUME 10.2 fl (9.6-12.3); MONO # 0.3 10*3/uL (0.1-1.0); MONO % 1.8 % (3.0-9.0); NEUT # 15.8 10*3/uL (2.3-7.9); PLATELET COUNT AUTOMATED 299 10*3/uL (130-400); RED BLOOD COUNT 4.95 10*6/uL (4.10-5.10); WHITE BLOOD COUNT 17.8 10*3/uL (4.8-10.8)
[2024-01-22] MEDS ORDERED: SODIUM CHLORIDE 0.9% 1,000 ML IV ONE (22:30)
[2024-01-22] MEDS ORDERED: Ondansetron Hydrochloride 4 MG/2 ML VIAL IV ONE (22:30)
[2024-01-22 22:57] LABS: ALKALINE PHOSPHATASE 521 U/L (46-116); BUN 11 mg/dl (9-23); CHLORIDE 102 mmol/L (98-107); LIPASE 190 U/L (12-53); POTASSIUM 3.2 mmol/L (3.4-5.1); SGPT/ALT 166 U/L (5-49); TOTAL PROTEIN 7.9 gm/dL (6.0-8.0)
[2024-01-23] MEDS ORDERED: HYDROmorphONE Hydrochloride 0.5 MG/0.5 ML SYRINGE IV ONE ×2 (00:20→03:10)
[2024-01-23] MEDS ORDERED: Ondansetron Hydrochloride 4 MG/2 ML VIAL IV ONE (03:15)
== END 2024-01-23 03:27 | disposition short-term general hospital (02) ==
LOC: ED 21:47
PROVIDERS: Internal Medicine
DX: K80.50 Calculus of bile duct without cholangitis or cholecystitis without obstruction (principal); E87.6 Hypokalemia; R79.89 Other specified abnormal findings of blood chemistry; R74.8 Abnormal levels of other serum enzymes; D72.829 Elevated white blood cell count, unspecified; E11.22 Type 2 diabetes mellitus with diabetic chronic kidney disease; I12.9 Hypertensive chronic kidney disease with stage 1 through stage 4 chronic kidney disease, or unspecified chronic kidney disease; N18.31 Chronic kidney disease, stage 3a; R11.2 Nausea with vomiting, unspecified; Z90.49 Acquired absence of other specified parts of digestive tract; Z79.899 Other long term (current) drug therapy; Z98.890 Other specified postprocedural states